=== PATIENT | female | born 1960 | race African-American/Black ===

== ENCOUNTER 2018-06-29 08:55 | Outpatient (CLI) | payer MEDICARE, OTHER ==
--- NOTE | 2018-06-29 11:23 | HP ---
HISTORY OF PRESENT ILLNESS: Ms. Annie Pierre is a 58-year-old accompanied by her cousin, who presents [facility] for evaluation of a wound of the right hip and left heel. The patient is accompanied by her cousin and one of her caregivers at [facility]. The patient's cousin states that the hip wound has been present since October of 2017. She states that currently the patient is receiving negative-pressure therapy, which was initiated in December of 2017. The patient's cousin states that the wound has failed to progress in terms of healing. She also reports drainage over the periwound despite treatment with the wound VAC. The patient's cousin states that other treatments for the right hip wound have included dressing changes with calcium alginate, followed by 4 x 4's, Allevyn foam, and a silicone dressing. The patient's cousin states that the left medial heel wound has been present since June 10, 2018. The patient presents to clinic today with the wound dressed with gauze, foam, and tape. The patient's cousin states that in April of last year, specifically on May 08, 2018, foam was applied to the left medial heel to prevent the development of an open wound. The patient's cousins states that Ms. Pierre has been nonambulatory since 2015. PAST MEDICAL HISTORY: 1. Down syndrome. 2. Hypertension. 3. Hypothyroidism. 4. Arthritis. PAST SURGICAL HISTORY: Negative. MEDICATIONS: 1. Hydrocortisone. 2. Ketoconazole shampoo. 3. Lumigan eye drops. 4. Synthroid. 5. Aspirin 81 mg. 6. Tylenol Arthritis. 7. . ALLERGIES: NO KNOWN DIAGNOSED ALLERGIES. SOCIAL HISTORY: Social history is negative for tobacco or EtOH use. FAMILY HISTORY: Family history significant for diabetes mellitus. The patient's mother and 5 aunts apparently were diagnosed with diabetes mellitus. Family history is negative for coronary artery disease. PHYSICAL EXAMINATION: VITAL SIGNS: Temperature 97.6, pulse 91, respirations 20, and blood pressure 108/89. GENERAL: A 58-year-old female, lying on stretcher in examination room, in no acute distress. HEENT: Normocephalic. NECK: No nuchal rigidity. CHEST: Clear to auscultation. CV: Regular rate and rhythm. ABDOMEN: Soft. EXTREMITIES: A wound of the right hip is present, which measures approximately 1.5 x 0.5 cm. Granulation tissue is present within the wound margins. No purulent drainage is associated with the wound. No erythema of the skin surrounding the wound is present. No maceration of the skin of the periwound is noted. Smaller wounds over the periwound are present and a sample of granulation tissue within the wound margins of one of the wounds of the periwound was excised with the use of scissors and sent for aerobic and anaerobic cultures. A left medial heel wound is present, which measures approximately 5.5 x 3.5 cm. Hypergranulation is noted within the wound margins. No purulent drainage is associated with the wound. No erythema of the skin surrounding the wound is present. No maceration of the skin of the periwound is noted. No significant edema of the left foot is appreciated on exam today. ASSESSMENT AND PLAN: 1. Right hip and left heel wounds as described above. Negative pressure therapy for the right hip wound will be continued with dressing changes of the wound VAC 3 times per week at [facility]. Antibiotic therapy will be initiated based upon the results of the tissue cultures obtained today with the left heel wound dressing changes of Multidex powder, 4 x 4's, Kerlix, and an Charbel bandage will be initiated. These dressing changes are to be performed every other day after cleansing and irrigation at [facility]. Plain films of the right hip and left heel will be obtained today to look for findings suggestive of osteomyelitis. Antibiotic therapy for the right hip wound will be initiated based upon the results of the tissue cultures obtained today. I will also discuss the treatment plan with Dr. Hopkins. Apparently, the patient is in the process of obtaining CT scan of the right hip and/or left heel wounds to look for findings suggestive of osteomyelitis. 2. Down syndrome. 3. Hypertension. 4. Hypothyroidism. 5. Arthritis. Job ID: [id number]
[2018-06-29] MEDS ORDERED: Sodium Chloride 0.9% 15 ML NEB ONE (13:54)
[2018-06-29] MEDS ORDERED: Lidocaine 2% PF 100 mg/5 ml Syringe ONE (13:54)
== END 2018-06-29 08:56 | disposition home or self-care (01) ==
LOC: WCC 08:55
PROVIDERS: ATTEND Family Medicine
DX: S91.302D Unspecified open wound, left foot, subsequent encounter (principal); S71.001D Unspecified open wound, right hip, subsequent encounter; Q90.9 Down syndrome, unspecified; I10 Essential (primary) hypertension; E04.9 Nontoxic goiter, unspecified; E03.9 Hypothyroidism, unspecified; M19.90 Unspecified osteoarthritis, unspecified site
CPT/HCPCS: 87070; 87077; 87186; 87205; 97602; 99203; G0463

== ENCOUNTER 2018-07-27 08:39 | Outpatient (CLI) | payer MEDICARE, MEDICAID ==
[2018-07-27] MEDS ORDERED: Sodium Chloride 0.9% 15 ML NEB ONE (09:00)
--- NOTE | 2018-07-27 09:54 | PRG ---
DATE OF SERVICE: 07/27/2018 HISTORY: Ms. Annie Pierre is a 58-year-old, accompanied by her cousin who presents to the [facility] Center for evaluation of a wound of the right hip and left heel. The patient is accompanied by her cousin, who is also one of her caregivers at [facility]. The patient's cousin previously stated that the hip wound has been present since October of 2017. She stated that the patient had been receiving negative pressure therapy since December of 2017. The patient's cousin stated that the wound had failed to progress in terms of healing. She also reported drainage over the periwound despite treatment with the wound VAC. The patient's cousin stated that other treatments for the right hip wound had included dressing changes with calcium alginate, followed by 4x4's, Allevyn foam, and a silicone dressing. The patient's cousin stated that the left medial heel wound had been present since 06/10/2018. The patient's cousin stated that Ms. Pierre has been nonambulatory since 2015. PHYSICAL EXAMINATION: VITAL SIGNS: Temperature 98.6, pulse 64, and blood pressure 99/55. EXTREMITIES: A wound of the right hip is present, which measures approximately 1.2 x 1.8 cm. A tunnel is associated with the wound, which is approximately 5 cm in length. Granulation tissue is present within the wound margins. No purulent drainage is associated with the wound. No erythema of the skin surrounding the wound is present. No maceration of the skin of the periwound is noted. A left medial heel wound is present, which measures approximately 3.4 x 4.0 cm. The dimensions of the wound at the time of the patient's last visit were approximately 5.5 x 3.5 cm. Granulation tissue is present within the wound margins. No purulent drainage is associated with the wound. No erythema of the skin surrounding the wound is present. No maceration of the skin of the periwound is noted. No significant edema of the left foot is present on exam to date. ASSESSMENT AND PLAN: 1. Right hip and left heel wounds as described above. Negative pressure therapy for the right hip wound will be continued with dressing changes of the wound VAC 3 times per week in [facility]. For the left heel wound, dressing changes of Multidex powder, 4x4s, Kerlix, and an Charbel bandage will be continued every other day after cleansing and irrigation at [facility]. Arrangements will be made for technetium triple-phase bone scan to look for findings suggestive of osteomyelitis of the right hip. I will see Ms. Pierre again in 4 weeks. 2. Down syndrome. 3. Hypertension. 4. Hypothyroidism. 5. Arthritis. Job ID: [id number]
== END 2018-07-27 08:40 | disposition home or self-care (01) ==
LOC: WCC 08:39
PROVIDERS: ATTEND Family Medicine
DX: S71.001D Unspecified open wound, right hip, subsequent encounter (principal); S91.302D Unspecified open wound, left foot, subsequent encounter; I10 Essential (primary) hypertension; Q90.9 Down syndrome, unspecified; M19.90 Unspecified osteoarthritis, unspecified site; E03.9 Hypothyroidism, unspecified
CPT/HCPCS: A4218

== ENCOUNTER 2018-08-10 09:13 | Outpatient (CLI) | payer OTHER ==
--- NOTE | 2018-08-10 15:50 | NM ---
THREE-PHASE BONE SCAN PELVIS: 08/10/2018 HISTORY: Chronic wound and osteomyelitis. COMPARISON: Right hip views from 06/29/2018. FINDINGS: On blood flow and blood pool images, there is an irregular, rounded area of increased activity, which appears to be in the region of the subcutaneous soft tissues about the right hip, which correspond t o the region of subcutaneous emphysema and defect in the subcutaneous soft tissues on the radiograph of 06/29/2018. There is otherwise no definitively increased flow seen to the right extremity. The d elayed images are significantly rotated due to the patient's condition, which limits adequate evaluat ion. Some of the images do suggest increased activity in the intertrochanteric region of the right h ip, but a true anterior projection was obtained without significant uptake of radiotracer, and findin gs on the oblique projection may be related to positioning and possibly contamination overlying the r ight hip, and the possibility of urine insinuating into the defect in the soft tissues is a possibili ty. IMPRESSION: Limited examination due to patient position and a large amount of urine contamination; however, no de finite uptake is delineated on the anterior projection within the right hip. Activity overlying the right hip on oblique imaging is probably related to urine contamination, within the region of the sub cutaneous defect. There are no definitive findings to suggest osteomyelitis, based on this examinati on. Followup is recommended as clinically indicated. POS: MATILDE
== END 2018-08-10 09:14 | disposition home or self-care (01) ==
LOC: NM 09:13
PROVIDERS: ATTEND Family Medicine
DX: L89.219 Pressure ulcer of right hip, unspecified stage (principal)
CPT/HCPCS: 78315; A9503

== ENCOUNTER 2018-09-02 15:38 | Outpatient (CLI) | payer MEDICARE, MEDICAID ==
--- NOTE | 2018-09-02 09:23 | PRG ---
DATE OF SERVICE: 09/02/2018 HISTORY: Ms. Annie Pierre is a 58-year-old, accompanied by her cousin, who presents to the [facility]ound Center for evaluation of a wound of the right hip and left heel. The patient is accompanied by her cousin who is also one of her caregivers at [facility]. The patient's cousin previously stated that the hip wound has been present since October of 2017. She stated that the patient had been receiving negative pressure therapy since December of 2017. The patient's cousin stated that the wound had failed to progress in terms of healing. She also reported drainage over the periwound despite treatment with the wound VAC. The patient's cousin stated that other treatments for the right hip wound had included dressing changes with calcium alginate, followed by 4x4s, Allevyn foam, and a silicone dressing. The patient's cousin stated that the left medial heel wound had been present since 06/10/2018. The patient's cousin stated that Ms. Pierre has been nonambulatory since 2015. PHYSICAL EXAMINATION: VITAL SIGNS: Temperature 98.2, pulse 72, respirations 20, blood pressure 87/58. EXTREMITIES: A wound of the right hip is present, which measures approximately 1.5 x 1.3 cm. A tunnel is associated with the wound, which is approximately 4.2 cm in length. Granulation tissue is present within the wound margins. No purulent drainage is associated with the wound. No erythema of the skin surrounding the wound is present. No maceration of the skin of the periwound is noted. A left medial heel wound is present, which measures approximately 3.4 x 1.0 cm. Granulation tissue is present within the wound margins. No purulent drainage is associated with the wound. No erythema of the skin surrounding the wound is present. No maceration of the skin of the periwound is noted. No significant edema of the left foot is present on exam today. ASSESSMENT AND PLAN: 1. Right hip and left heel wounds as described above. Negative pressure therapy for the right hip wound will be continued with dressing changes of the wound VAC 3 times per week at [facility]. For the left heel wound, dressing changes of Multidex powder, 4x4s, Kerlix, and an Charbel bandage will be continued every other day after cleansing and irrigation at [facility]. Technetium triple-phase bone scan showed no definitive findings to suggest osteomyelitis. I will see Ms. Pierre again in 6 weeks. 2. Down syndrome. 3. Hypertension. 4. Hypothyroidism. 5. Arthritis. Job ID: [id number]
[~2018-09-02 15:38] MED LIST: Lidocaine 2% PF 100 mg/5 ml Syringe ONE; Sodium Chloride 0.9% 15 ML NEB ONE
== END 2018-09-02 15:39 | disposition home or self-care (01) ==
LOC: WCC 15:38
PROVIDERS: ATTEND Family Medicine
DX: S91.302D Unspecified open wound, left foot, subsequent encounter (principal); S71.001D Unspecified open wound, right hip, subsequent encounter; Q90.9 Down syndrome, unspecified; I10 Essential (primary) hypertension; E03.9 Hypothyroidism, unspecified; M19.90 Unspecified osteoarthritis, unspecified site
CPT/HCPCS: A4218; J2001

== ENCOUNTER 2018-10-14 08:20 | Outpatient (CLI) | payer MEDICARE, MEDICAID ==
--- NOTE | 2018-10-14 08:48 | PRG ---
DATE OF SERVICE: 10/14/2018 HISTORY: Ms. Annie Pierre is a very pleasant 58-year-old, accompanied by her cousin, who presents to the Wound Center for evaluation of a wound of the right hip and left heel. The patient's cousin accompanying Ms. Pierre today is also one of her caregivers at [facility]. The patient's cousin previously stated that the hip wound had been present since October of 2017. She stated that the patient had been receiving negative pressure therapy since December of 2017. The patient's cousin stated that the wound had failed to progress in terms of healing. She also reported drainage over the periwound despite treatment with the wound VAC. The patient's cousin stated that other treatments for the right hip wound had included dressing changes with calcium alginate followed by 4x4s, Allevyn foam and a silicone dressing. The patient's cousin stated that the left medial heel wound had been present since June 10, 2018. The patient's cousin also stated that Ms. Pierre has been nonambulatory since 2015. PHYSICAL EXAMINATION: VITAL SIGNS: Temperature 98.4, pulse 73, blood pressure 104/63. EXTREMITIES: A wound of the right hip is present, which measures approximately 0.9 x 0.8 cm. The dimensions of the wound at the time of the patient's last visit were approximately 1.5 x 1.3 cm. A tunnel is associated with the wound, which is approximately 3 cm in length. The length of the tunnel at the time of the patient's last visit was approximately 4.2 cm in length. Granulation tissue is present within the wound margins. No purulent drainage is associated with the wound. No erythema of the skin surrounding the wound is present. No maceration of the skin of the periwound is noted. The left medial heel wound has healed completely. ASSESSMENT AND PLAN: 1. Right hip and left heel wounds as described above. As stated above, the left heel wound has completely healed. Negative pressure therapy for the right hip wound will be discontinued. Dressing changes of Hydrofera Blue will be initiated today. These dressing changes are to be performed on a daily basis or alternatively 3 times per week after cleansing and irrigation at [facility]. Dressing changes for the left heel wound will be discontinued. Technetium triple-phase bone scan obtained in July showed no definitive findings to suggest osteomyelitis. I will see Ms. Pierre again in 4 weeks. 2. Down syndrome. 3. Hypertension. 4. Hypothyroidism. 5. Arthritis. Job ID: [id number]
[2018-10-14] MEDS ORDERED: Sodium Chloride 0.9% 15 ML NEB ONE (09:00)
== END 2018-10-14 08:21 | disposition home or self-care (01) ==
LOC: WCC 08:20
PROVIDERS: ATTEND Family Medicine
DX: T81.89XD Other complications of procedures, not elsewhere classified, subsequent encounter (principal); Q90.9 Down syndrome, unspecified; I10 Essential (primary) hypertension; E03.9 Hypothyroidism, unspecified; M19.90 Unspecified osteoarthritis, unspecified site
CPT/HCPCS: 97602; A4218

== ENCOUNTER 2018-11-16 10:59 | Outpatient (CLI) | payer MEDICARE, MEDICAID ==
--- NOTE | 2018-11-16 09:31 | PRG ---
DATE OF SERVICE: 11/16/2018 HISTORY: Ms. Annie Pierre is a very pleasant 58-year-old, accompanied by her cousin, who presents to the Wound Center for evaluation of a wound of the right hip and left heel. The patient's cousin accompanying Ms. Pierre today is also one of her caregivers at [facility]. The patient's cousin previously stated that the hip wound had been present since October 2017. She stated that the patient had been receiving negative pressure therapy since December 2017. The patient's cousin stated that the wound had failed to progress in terms of healing. She also reported drainage over the periwound despite treatment with the wound VAC. The patient's cousin stated that other treatments for the right hip wound had included dressing changes with calcium alginate followed by 4x4s, Allevyn foam, and a silicone dressing. The patient's cousin stated that the left medial heel wound had been present since June 10, 2018. The patient's cousin also stated that Ms. Pierre has been nonambulatory since 2015. At the time of the patient's last visit, negative pressure therapy was discontinued and the patient has been receiving dressing changes of Hydrofera Blue 3 times per week after cleansing and irrigation at [facility]. PHYSICAL EXAMINATION: VITAL SIGNS: Temperature 98.1, pulse 60, respirations 16, and blood pressure 122/77. EXTREMITIES: A wound of the right hip is present, which measures approximately 0.3 x 0.9 cm. The dimensions of the wound at the time of the patient's last visit were approximately 0.9 x 0.8 cm. A tunnel associated with the wound is present and is approximately 1.5 cm in length. The length of the tunnel at the time of the patient's last visit was approximately 3 cm in length. Granulation tissue is present within the wound margins. No purulent drainage is associated with the wound. No erythema of the skin surrounding the wound is present. No maceration of the skin of the periwound is noted. The left medial heel wound has healed completely and remains healed. ASSESSMENT AND PLAN: 1. Right hip and left heel wounds as described above. As stated above, the left heel wound has completely healed and remains healed. Dressing changes of Hydrofera Blue for the right hip wound will be continued 3 times per week or alternatively on a daily basis after cleansing and irrigation at [facility]. I will see Ms. Pierre again in 6 weeks. 2. Down syndrome. 3. Hypertension. 4. Hypothyroidism. 5. Arthritis. Job ID: [id number]
[2018-11-16] MEDS ORDERED: Lidocaine 2% PF 100 mg/5 ml Syringe ONE (18:00)
[2018-11-16] MEDS ORDERED: Sodium Chloride 0.9% 15 ML NEB ONE (18:00)
== END 2018-11-16 11:00 | disposition home or self-care (01) ==
LOC: WCC 10:59
PROVIDERS: ATTEND Family Medicine
DX: S71.001D Unspecified open wound, right hip, subsequent encounter (principal); S91.302D Unspecified open wound, left foot, subsequent encounter; Q90.9 Down syndrome, unspecified; I10 Essential (primary) hypertension; M19.90 Unspecified osteoarthritis, unspecified site; E03.9 Hypothyroidism, unspecified
CPT/HCPCS: A4218; J2001

== ENCOUNTER 2018-12-23 08:00 | Outpatient (CLI) | payer MEDICARE, OTHER ==
--- NOTE | 2018-12-23 09:21 | PRG ---
DATE OF SERVICE: 12/23/2018 HISTORY: Ms. Annie Pierre is a very pleasant 58-year-old, who presents to the Wound Center for evaluation of a wound of the right hip. The patient resides at [facility]. The patient's cousin previously stated that the hip wound had been present since October 2017. She stated that the patient had been receiving negative pressure therapy since December 2017. She stated that the wound had failed to progress in terms of healing. She also reported drainage over the periwound despite treatment with the wound VAC. The patient's cousin stated that other treatments for the hip wound had included dressing changes with calcium alginate followed by 4 x 4's, Allevyn foam, and a silicone dressing. The patient's cousin also stated that Ms. Pierre has been nonambulatory since 2015. After negative pressure therapy was discontinued, the patient was placed on dressing changes of Hydrofera Blue 3 times per week after cleansing and irrigation at [facility]. PHYSICAL EXAMINATION: VITAL SIGNS: Temperature 98.0, pulse 63, respirations 16, and blood pressure 92/57. EXTREMITIES: The wound of the right hip has healed completely. ASSESSMENT AND PLAN: 1. Right hip wound. As stated above, the right hip wound has completely healed. Dressing changes will be discontinued and Ms. Pierre will be discharged from clinic today with followup on a p.r.n. basis. 2. Down syndrome. 3. Hypertension. 4. Hypothyroidism. 5. Arthritis. Job ID: [id number]
[2018-12-23] MEDS ORDERED: Sodium Chloride 0.9% 15 ML NEB ONE (18:00)
== END 2018-12-23 08:01 ==
LOC: WCC 08:00
PROVIDERS: ATTEND Family Medicine
DX: S71.001D Unspecified open wound, right hip, subsequent encounter (principal); I10 Essential (primary) hypertension; E03.9 Hypothyroidism, unspecified; M19.90 Unspecified osteoarthritis, unspecified site
CPT/HCPCS: 97602; A4218

== ENCOUNTER 2019-01-04 11:19 | Outpatient (CLI) | payer MEDICARE, OTHER ==
[~2019-01-04 11:19] MED LIST changes: -Lidocaine 2% PF 100 mg/5 ml Syringe ONE
--- NOTE | 2019-01-04 12:05 | PRG ---
DATE OF SERVICE: 01/04/2019 HISTORY: Ms. Annie Pierre is a very pleasant 58-year-old who presents to the Wound Center for evaluation of a recurrent wound of the right hip. The patient still resides at [facility] For the right hip wound, the patient received a course of negative pressure therapy, which she was receiving when she initially presented to the Wound Center. When negative pressure therapy was discontinued, the patient was placed on dressing changes of Hydrofera Blue 3 times per week after cleansing and irrigation at [facility] PHYSICAL EXAMINATION: VITAL SIGNS: Temperature 98.1, pulse 68, respirations 21, blood pressure 98/64. EXTREMITIES: A wound of the right hip is present, which measures approximately 0.5 x 0.7 cm. Granulation tissue is present within the wound margins. No purulent drainage is associated with the wound. No cellulitis of the right hip is appreciated. No maceration of the skin of the periwound is noted. The periwound contains open areas of the skin. A sample of granulation tissue from one of these open areas was obtained with the use of scissors and sent for aerobic and anaerobic cultures. ASSESSMENT AND PLAN: 1. Recurrent right hip wound. For this wound and the wounds over the periwound, dressing changes of Medihoney gauze and Mepilex border will be initiated today. These dressing changes are to be performed 3 times per week after cleansing and irrigation at [facility] I will see Ms. Pierre again in 3 weeks. Antibiotic therapy will be initiated based upon the results of the tissue cultures obtained today. 2. Down syndrome. 3. Hypertension. 4. Hypothyroidism. 5. Arthritis. Job ID: [id number]
== END 2019-01-04 11:20 | disposition home or self-care (01) ==
LOC: WCC 11:19
PROVIDERS: ATTEND Family Medicine
DX: S71.001D Unspecified open wound, right hip, subsequent encounter (principal); I10 Essential (primary) hypertension; E03.9 Hypothyroidism, unspecified; Q90.9 Down syndrome, unspecified; M19.90 Unspecified osteoarthritis, unspecified site
CPT/HCPCS: 36415; 80053; 84443; 87070; 87077; 87186; 87205; A4218

== ENCOUNTER 2020-04-10 22:31 | Emergency (ER) | payer MEDICARE, MEDICAID ==
[2020-04-10] MEDS ORDERED: Morphine 4 MG/ML VIAL ONE (23:07)
--- NOTE | 2020-04-11 07:32 | ULT ---
PRELIMINARY REPORT/[facility]/EMERGENCY AFTER HOURS PROCEDURE: EXAM: US Duplex right Lower Extremity Veins. CLINICAL HISTORY: 59-year-old female who is nonverbal at baseline and has Down syndrome [facility], elevated d-dimer, R/O DVT TECHNIQUE: Real-time ultrasound scan of the veins of the right lower extremity with color Doppler flow, spectral waveform analysis and compression. COMPARISON: None provided. FINDINGS: DEEP VEINS: The common femoral, femoral, and popliteal veins are echolucent and compressible. These vessels demon strate respiratory variation and augmentation. There is normal color Doppler flow throughout. The hermilo f veins were not visualized. SUPERFICIAL VEINS: The visualized greater saphenous vein is patent. SOFT TISSUES: No popliteal fossa cyst or other abnormalities. IMPRESSION: No deep venous thrombosis in the right lower extremity. EXAM: US Duplex left Lower Extremity Veins. CLINICAL HISTORY: 59-year-old female who is nonverbal at baseline and has Down syndrome and is nonambulatory at [facility], elevated d-dimer, R/O DVT TECHNIQUE: Real-time ultrasound scan of the veins of the left lower extremity with color Doppler flow, spectral waveform analysis and compression. COMPARISON: None provided. FINDINGS: DEEP VEINS: The common femoral, femoral veins are echolucent and compressible. These vessels demonstrate respirat ory variation and augmentation. There is normal color Doppler flow throughout. The popliteal vein and calf veins were not visualized. SUPERFICIAL VEINS: The visualized greater saphenous vein is patent. SOFT TISSUES: No popliteal fossa cyst or other abnormalities. IMPRESSION: No deep venous thrombosis in the visualized left lower extremity. ELECTRONICALLY SIGNED BY: Corky Solorzano MD Apr 11, 2020 12:34:16 AM CDT This report is intended for review by the ordering physician only, in accordance of law. If you recei ve this report in error, please call [facility] at [phone]. FINAL REPORT EMERGENCY AFTER HOURS BILATERAL LOWER EXTREMITY VENOUS ULTRASOUND: TECHNIQUE: Multiplanar Cano scale and color Doppler images were obtained in a bilateral lower extremity venous u ltrasound. Spectral analysis with Doppler waveforms were performed. FINDINGS/IMPRESSION: I agree with the findings and impression given in the preliminary report per [facility] physici an. No evidence of deep venous thrombosis on this limited exam secondary to patient's contracted status. POS: DONOVAN
== END 2020-04-11 01:52 ==
LOC: ERS 22:31
DX: L89.329 Pressure ulcer of left buttock, unspecified stage (principal); L89.219 Pressure ulcer of right hip, unspecified stage; L97.929 Non-pressure chronic ulcer of unspecified part of left lower leg with unspecified severity; R79.1 Abnormal coagulation profile; Q90.9 Down syndrome, unspecified; J45.909 Unspecified asthma, uncomplicated; E78.5 Hyperlipidemia, unspecified; Z79.82 Long term (current) use of aspirin; Z79.899 Other long term (current) drug therapy; E66.01 Morbid (severe) obesity due to excess calories
CPT/HCPCS: 93970; 96374; J2270